=== PATIENT | male | born 1940 | race Caucasian/White ===

== ENCOUNTER → 2017-02-20 | Outpatient (CLI) | payer OTHER ==
[~2017-02-20] MED LIST: GLYBURIDE5 MG PO; KEFLEX500 MG PO; LISINOPRIL5 MG PO; METFORMIN500 MG PO; QUINAPRIL5 MG PO; TYLENOL W/CODEI1 TA2 PO
[2017-02-20 08:42] LABS: HEMATOCRIT 44.4 % (42.0-52.0); HEMOGLOBIN 14.6 g/dl (14.0-18.0); MEAN CELL VOLUME 88.8 fl (80.0-94.0); MEAN CORPUSCULAR HGB 29.2 pg (27.0-31.0); MEAN CORPUSCULAR HGB CONC 32.9 g/dl (33.0-37.0); MEAN PLATELET VOLUME 9.7 fl (9.6-12.3); RED CELL DISTRI WIDTH 13.8 % (0-14.5); WHITE BLOOD COUNT 6.2 10*3/uL (4.8-10.8)
[2017-02-20 09:03] LABS: ALKALINE PHOSPHATASE 89 U/L (45-117); BUN 20 mg/dl (7-24); CHLORIDE 104 mmol/L (98-107); CHOLESTEROL 186 mg/dL (<200); CPK 92 U/L (39-308); CREATININE 1.01 mg/dL (0.70-1.30); POTASSIUM 4.3 mmol/L (3.5-5.1); SODIUM 140 mmol/L (136-145); TRIGLYCERIDES 95 mg/dl (<150); VLDL CHOLESTEROL 19 mg/dL (6-40)
[2017-02-20 09:05] LABS: HDL CHOLESTEROL 68 mg/dl (40-60); LDL CHOLESTEROL 99 mg/dL (9-159); SGOT/AST 16 IU/L (3-35); SGPT/ALT 30 U/L (12-78); TOTAL PROTEIN 6.9 gm/dL (6.4-8.2)
[2017-02-21 08:11] LABS: PROSTATE SPECIFIC AG FREE 1.32 ng/mL; PROSTATE SPECIFIC AG, SERUM 5.8 ng/mL (0.0-4.0)
== END | disposition home or self-care (01) ==
LOC: LAB 07:57
PROVIDERS: Family Medicine
DX: E78.00 Pure hypercholesterolemia, unspecified (principal); R97.20 Elevated prostate specific antigen [PSA]; E11.9 Type 2 diabetes mellitus without complications; M19.90 Unspecified osteoarthritis, unspecified site

== ENCOUNTER → 2017-05-29 | Outpatient (CLI) | payer OTHER ==
[2017-05-29 10:18] LABS: ALBUMIN 3.3 gm/dl (3.1-4.5); ALKALINE PHOSPHATASE 77 U/L (45-117); BUN 19 mg/dl (7-24); CHLORIDE 101 mmol/L (98-107); CHOLESTEROL 199 mg/dL (<200); CPK 66 U/L (39-308); CREATININE 1.13 mg/dL (0.70-1.30); HDL CHOLESTEROL 68 mg/dl (40-60); LDL CHOLESTEROL 97 mg/dL (9-159); POTASSIUM 4.1 mmol/L (3.5-5.1); SGOT/AST 16 IU/L (3-35); SGPT/ALT 30 U/L (12-78); SODIUM 138 mmol/L (136-145); TOTAL PROTEIN 6.9 gm/dL (6.4-8.2); TRIGLYCERIDES 172 mg/dl (<150); VLDL CHOLESTEROL 34 mg/dL (6-40)
== END | disposition home or self-care (01) ==
LOC: LAB 09:27
PROVIDERS: Family Medicine
DX: R97.20 Elevated prostate specific antigen [PSA] (principal); N40.0 Benign prostatic hyperplasia without lower urinary tract symptoms; I10 Essential (primary) hypertension; E11.9 Type 2 diabetes mellitus without complications; E78.00 Pure hypercholesterolemia, unspecified

== ENCOUNTER → 2017-06-13 | Outpatient (CLI) | payer OTHER | END | disposition home or self-care (01) | LOC: US 06-12 13:30 | DX: R09.89 Other specified symptoms and signs involving the circulatory and respiratory systems (principal) ==

== ENCOUNTER → 2017-07-01 | Outpatient (CLI) | payer OTHER ==
[~2017-07-01] MED LIST changes: +JARDIANCE25 MG PO; +METFORMIN1000 MG PO; +OMEPRAZOLE20 M2 PO
--- NOTE | ~2017-07-01 | ST ---
[place], [place] EXERCISE STRESS TEST REPORT [id number] UN[facility] #: [id number] ROOM: DOCTOR: FUNMILAYO PINEDA MD BIRTHDATE: [birth year] DOS: 07/01/2017 LEXISCAN PORTION OF THE LEXISCAN CARDIOLITE Baseline cardiogram showed early repolarization with concave ST elevation diffusely and also PACs in sinus bradycardia, 0.4 mg Lexiscan, duration of 10 seconds. With Lexiscan, no new EKG changes. No more PVCs. No chest discomfort. Has some shortness of breath. Blood pressure and heart rate response was normal. Nuclear images will be reported separately. FUNMILAYO PINEDA MD CM:STRESS:EXERCISE STRESS TEST REPORT [id number] FUNMILAYO PINEDA MD
== END | disposition home or self-care (01) ==
LOC: CARD 01:34
DX: E11.9 Type 2 diabetes mellitus without complications (principal); R94.31 Abnormal electrocardiogram [ECG] [EKG]; R53.81 Other malaise; R06.02 Shortness of breath

== ENCOUNTER → 2017-08-14 | Outpatient (CLI) | payer OTHER ==
[2017-08-14 10:15] LABS: ALBUMIN 3.2 gm/dl (3.1-4.5); ALKALINE PHOSPHATASE 90 U/L (45-117); BUN 16 mg/dl (7-24); CHLORIDE 99 mmol/L (98-107); CHOLESTEROL 177 mg/dL (<200); CPK 93 U/L (39-308); HDL CHOLESTEROL 52 mg/dl (40-60); LDL CHOLESTEROL 88 mg/dL (9-159); POTASSIUM 4.7 mmol/L (3.5-5.1); SGOT/AST 15 IU/L (3-35); SGPT/ALT 24 U/L (12-78); SODIUM 137 mmol/L (136-145); TOTAL PROTEIN 6.9 gm/dL (6.4-8.2); TRIGLYCERIDES 185 mg/dl (<150); VLDL CHOLESTEROL 37 mg/dL (6-40)
== END | disposition home or self-care (01) ==
LOC: LAB 08:56
PROVIDERS: Family Medicine
DX: E78.00 Pure hypercholesterolemia, unspecified (principal); E11.9 Type 2 diabetes mellitus without complications

== ENCOUNTER → 2017-11-19 | Outpatient (CLI) | payer OTHER ==
[2017-11-19 10:11] LABS: HEMATOCRIT 45.8 % (42.0-52.0); HEMOGLOBIN 14.8 g/dl (14.0-18.0); MEAN CELL VOLUME 88.9 fl (80.0-94.0); MEAN CORPUSCULAR HGB 28.7 pg (27.0-31.0); MEAN CORPUSCULAR HGB CONC 32.3 g/dl (33.0-37.0); MEAN PLATELET VOLUME 9.7 fl (9.6-12.3); RED BLOOD COUNT 5.15 10*6/uL (4.50-5.90); RED CELL DISTRI WIDTH 13.8 % (0-14.5); WHITE BLOOD COUNT 6.4 10*3/uL (4.8-10.8)
[2017-11-19 10:32] LABS: ALBUMIN 3.4 gm/dl (3.1-4.5); ALKALINE PHOSPHATASE 74 U/L (45-117); BUN 19 mg/dl (7-24); CHLORIDE 103 mmol/L (98-107); CHOLESTEROL 181 mg/dL (<200); CPK 102 U/L (39-308); CREATININE 1.05 mg/dL (0.70-1.30); HDL CHOLESTEROL 67 mg/dl (40-60); LDL CHOLESTEROL 91 mg/dL (9-159); POTASSIUM 4.1 mmol/L (3.5-5.1); SGOT/AST 10 IU/L (3-35); SGPT/ALT 26 U/L (12-78); SODIUM 139 mmol/L (136-145); TOTAL PROTEIN 6.9 gm/dL (6.4-8.2); TRIGLYCERIDES 114 mg/dl (<150); VLDL CHOLESTEROL 23 mg/dL (6-40)
== END | disposition home or self-care (01) ==
LOC: LAB 09:42
PROVIDERS: Family Medicine
DX: E11.9 Type 2 diabetes mellitus without complications (principal); E78.00 Pure hypercholesterolemia, unspecified; I10 Essential (primary) hypertension

== ENCOUNTER → 2018-03-18 | Outpatient (CLI) | payer OTHER | END | disposition home or self-care (01) | LOC: RAD 07:46 | DX: M25.512 Pain in left shoulder (principal) ==

== ENCOUNTER → 2018-05-11 | Outpatient (CLI) | payer OTHER ==
[~2018-05-11] MED LIST changes: +AMARYL2 MG PO; +ASPIRIN325 M2 PO; +ENOXAPARIN40 MG/0.2 SC; +HYDROCODONE-AC1 EAC1 PO; +MAG DELAY PO
== END | disposition home or self-care (01) ==
DX: J02.9 Acute pharyngitis, unspecified (principal); E11.9 Type 2 diabetes mellitus without complications

== ENCOUNTER → 2018-06-18 | Outpatient (CLI) | payer OTHER ==
[2018-06-18 10:01] LABS: HEMATOCRIT 43.3 % (42.0-52.0); HEMOGLOBIN 14.2 g/dl (14.0-18.0); MEAN CELL VOLUME 89.1 fl (80.0-94.0); MEAN CORPUSCULAR HGB 29.2 pg (27.0-31.0); MEAN CORPUSCULAR HGB CONC 32.8 g/dl (33.0-37.0); MEAN PLATELET VOLUME 9.7 fl (9.6-12.3); RED BLOOD COUNT 4.86 10*6/uL (4.50-5.90); RED CELL DISTRI WIDTH 14.1 % (0-14.5); WHITE BLOOD COUNT 6.5 10*3/uL (4.8-10.8)
[2018-06-18 10:33] LABS: ALBUMIN 3.1 gm/dl (3.1-4.5); ALKALINE PHOSPHATASE 82 U/L (45-117); BUN 15 mg/dl (7-24); CHLORIDE 103 mmol/L (98-107); CHOLESTEROL 186 mg/dL (<200); CPK 59 U/L (39-308); CREATININE 0.99 mg/dL (0.70-1.30); HDL CHOLESTEROL 56 mg/dl (40-60); LDL CHOLESTEROL 95 mg/dL (9-159); POTASSIUM 4.3 mmol/L (3.5-5.1); SGOT/AST 15 IU/L (3-35); SGPT/ALT 23 U/L (12-78); SODIUM 139 mmol/L (136-145); TOTAL PROTEIN 6.8 gm/dL (6.4-8.2); TRIGLYCERIDES 175 mg/dl (<150); VLDL CHOLESTEROL 35 mg/dL (6-40)
== END | disposition home or self-care (01) ==
LOC: LAB 09:23
PROVIDERS: Family Medicine
DX: E11.9 Type 2 diabetes mellitus without complications (principal); E78.00 Pure hypercholesterolemia, unspecified

== ENCOUNTER → 2018-08-11 | Outpatient (CLI) | payer OTHER ==
[2018-08-12 08:14] LABS: PROSTATE SPECIFIC AG FREE 1.46 ng/mL; PROSTATE SPECIFIC AG, SERUM 5.1 ng/mL (0.0-4.0)
== END | disposition home or self-care (01) ==
LOC: LAB 09:34
PROVIDERS: Urology
DX: R97.20 Elevated prostate specific antigen [PSA] (principal)

== ENCOUNTER → 2018-09-18 | Outpatient (CLI) | payer OTHER ==
[2018-09-18 09:32] LABS: ALBUMIN 3.2 gm/dl (3.1-4.5); ALKALINE PHOSPHATASE 104 U/L (45-117); BUN 16 mg/dl (7-24); CHLORIDE 104 mmol/L (98-107); CHOLESTEROL 179 mg/dL (<200); CPK 109 U/L (39-308); CREATININE 1.02 mg/dL (0.70-1.30); HDL CHOLESTEROL 63 mg/dl (40-60); LDL CHOLESTEROL 92 mg/dL (9-159); SGOT/AST 19 IU/L (3-35); SGPT/ALT 20 U/L (12-78); SODIUM 140 mmol/L (136-145); TOTAL PROTEIN 6.7 gm/dL (6.4-8.2); TRIGLYCERIDES 119 mg/dl (<150); VLDL CHOLESTEROL 24 mg/dL (6-40)
[2018-09-18 09:33] LABS: POTASSIUM 5.1 mmol/L (3.5-5.1)
== END | disposition home or self-care (01) ==
LOC: LAB 08:58
PROVIDERS: Family Medicine
DX: E78.00 Pure hypercholesterolemia, unspecified (principal); E11.9 Type 2 diabetes mellitus without complications; E55.9 Vitamin D deficiency, unspecified; S82.892A Other fracture of left lower leg, initial encounter for closed fracture; X58.XXXA Exposure to other specified factors, initial encounter; Y93.89 Activity, other specified; Y92.89 Other specified places as the place of occurrence of the external cause; Y99.8 Other external cause status

== ENCOUNTER 2018-11-18 12:30 | Inpatient (IN) | payer OTHER ==
[~2018-11-18] VITALS: Ht 175.2 cm; Wt 73.8 kg
--- NOTE | ~2018-11-18 | EKG ---
[place], [place] ELECTROCARDIOGRAM REPORT NAME: GABY SOLANO UNIT #: [id number] ROOM: 522 DOCTOR: KAMARI DRAFT REPORT BIRTHDATE: [birth year] [facility] Test Date: 2018-11-18 Test Time: 15:20:17 Pat Name: GABY SOLANO Department: Room: 522 Gender: M Demolition Worker: Ketty Buck : 1940 Requested By: TIARA SALTER Order Number: [id number] Reading MD: Wendy Garay Measurements Intervals [place] Rate: 48 P: 57 RI: 227 QRS: 42 QRSD: 98 T: 53 QT: 436 QTc: 390 Interpretive Statements Sinus bradycardia Atrial premature complex Borderline prolonged RI interval Probable left ventricular hypertrophy ST elevation, consider anterolateral injury No previous ECG available for comparison Electronically Signed On 11-19-2018 8:38:27 PDT by Wendy Garay CM:EKGRPT:ELECTROCARDIOGRAM REPORT [id number] TIARA BENITES DRAFT REPORT TIARA SALTER M.D.
--- NOTE | ~2018-11-18 | O ---
[place], [place] OPERATIVE NOTE NAME: GABY SOLANO [facility] #: [id number] UNIT #: [id number] ROOM: 522 DOCTOR: AMARA TEMPLE DO BIRTHDATE: [birth year] DOS: 11/19/2018 PREOPERATIVE DIAGNOSIS: Right femoral neck fracture, displaced. POSTOPERATIVE DIAGNOSIS: Right femoral neck fracture, displaced. OPERATIVE PROCEDURE: Right hip femoral hemiarthroplasty. SURGEON: Amara Temple DO. INTERNSHIP COORDINATOR: Shira Reagan. ANESTHESIA: Mariola, TUBE CLEANING OPERATOR; spinal. INDICATIONS: The patient is a 78-year-old male who reports that yesterday he was standing on a bucket in his barn, reaching up to the rafters when he fell and suffered an injury to his right hip. The patient was taken to the Emergency Room and x-rays indicated a displaced right femoral neck fracture confirmed by CT scan. The risks and benefits of the procedure were explained to the patient preoperatively. Preoperative labs and x-rays were obtained. Preoperative medical optimization was performed by the hospitalist. PROCEDURE: The left hip was marked in the holding room. The patient was brought to the operative suite. Spinal anesthetic was performed by Anesthesia. The patient was placed in a lateral decubitus position with the right lower extremity superior and was held by the Blade positioning device. All bony prominences were padded. Timeout was performed. The right lower extremity was prepped and draped in the usual orthopedic fashion. The posterior southern incision was marked with a marking pen. The skin was injected with Marcaine 0.5% with epinephrine. The posterior southern incision was made sharply with a scalpel. Subcutaneous tissue was spread down to the level of the gluteus mary. The fascia of the gluteus mary was divided along the fibers and the muscle was divided bluntly along its fibers. The extremity was externally rotated and the piriformis and short external rotators were identified. The piriformis was tagged with a suture. The short external rotators were released from the level of their insertion at the greater trochanter and retracted posteriorly over the sciatic nerve. The capsule was identified and divided. The neck was noted to have a low fracture and no additional calcar cut was made. A rongeur was used to smooth off any sharp bony edges. The femoral head was removed using a straight Steinmann pin and a skid. The entry point on the proximal femur was lateralized using a box osteotome followed by straight awl and a lateral rasp. The small chili pepper broach was utilized followed by a size 8 broach and this was progressed to a size 14 to provide the best fit and fill of the canal. Attention was paid to the anteversion that naturally occurred in the proximal femur. The trial 1.5 mm head with a 51 followed by a 50 mm outer diameter bipolar was utilized. The size 1.5 head with a 50 outer diameter bipolar was noted to have the best range of motion in flexion, extension, internal and external rotation and no excessive shucking was noted. The leg length was measured against the opposite extremity [place], [place] OPERATIVE NOTE NAME: GABY SOLANO UNIT #: [id number] ROOM: [facility] DOCTOR: AMARA TEMPLE DO BIRTHDATE: [birth year] and found to be acceptable. The trials were removed and the area was copiously irrigated with normal saline. The Corail cementless femoral stem was pressfit into place. This was a size 14. The Articul/osei femoral head with a bipolar head was placed over the trunnion and cold welded into place. This was evaluated and found to be snug. The hip was then reduced with the femoral head into the acetabulum. The right lower extremity was again taken through a range of motion with flexion past 90 degrees, internal and external rotation at 90 degrees was noted to be 45 without evidence of instability. Extension was evaluated and found to be adequate. The leg was placed on a well-padded Vasquez stand and the repair was initiated. 0 Vicryl was used to close the capsule of the hip followed by 0 Vicryl for the piriformis and the short external rotators followed by 0 Vicryl for the gluteus fascia and 2-0 Vicryl for the adipose layer. The closure was completed with skin candi. The incision was again injected with Marcaine 0.5% with epinephrine. The dressing was applied using Xeroform, 4 x 4s, ABDs, Tegaderm. The abduction pillow was put into place. The patient was returned to supine position and returned to the hospital bed and taken to recovery room in satisfactory condition. Sponge and needle count correct. ESTIMATED BLOOD LOSS: 200 mL. SPECIMENS: Femoral head and neck, right. DRAINS: None. PACKING: None. COMPLICATIONS: None. The patient is noted to receive Ancef 2 grams IV piggyback preoperatively. Local injection of Marcaine 0.5% with epinephrine was utilized. IMPLANTS: 1. DePuy Corail hip system, cementless femoral stem CUELLAR coated, 135-degree angle, no collar, size 14. 2. Self-centering bipolar head, 50 mm outer diameter. 3. Articul/osei femoral head 28 mm x 1.5 mm taper. [place], [place] OPERATIVE NOTE NAME: XIOMARAGABY Terrell UNIT #: [id number] ROOM: 522 DOCTOR: AMARA TEMPLE DO BIRTHDATE: [birth year] AMARA TEMPLE DO CM:OPRECORD:OPERATIVE NOTE [id number] AMARA TEMPLE DO 11/19/18 1644 interface
--- NOTE | ~2018-11-18 | CON ---
[place], [place] REPORT OF CONSULTATION NAME: GABY SOLANO UNIT #: [id number] ROOM: 522 DOCTOR: ALEKSANDRA STAPLES MD BIRTHDATE: [birth year] DOS: 11/19/2018 CARDIOLOGY CONSULTATION REASON FOR CONSULTATION: Cardiac clearance for surgery. HISTORY OF PRESENT ILLNESS: The patient is a 78-year-old gentleman with history of hypertension, bradycardia, diabetes, presented to the Emergency Room for right hip pain after a fall. He was noted to have a fracture of the right hip and was admitted to the hospital. Cardiology consulted for cardiac clearance and also for bradycardia. He denies any chest pain, shortness of breath. No dizziness, syncope. No fever and chills. No nausea, vomiting, diarrhea. He is fairly active at home without any symptoms. He has sinus bradycardia without any symptoms. No neurologic symptoms. No bladder or bowel symptoms. No pulmonary symptoms. No genitourinary symptoms. Only complaint is right hip pain from his fall, but the patient did not pass out. REVIEW OF SYSTEMS: Review of 10 systems negative except as mentioned above. PAST MEDICAL HISTORY: 1. Hypertension. 2. Sinus bradycardia. 3. Diabetes type 2. PAST SURGICAL HISTORY: History of shoulder surgery. SOCIAL HISTORY: The patient does not smoke, does not use illicit drugs, does not drink alcohol on regular basis. FAMILY HISTORY: Father at age 80 from blood clot in the veins. Mother at 97 from old age. ALLERGIES: No known drug allergies. HOME MEDICATIONS: Reviewed. PHYSICAL EXAMINATION: VITAL SIGNS: Blood pressure 143/75, pulse 48, respiratory rate was 18, weight 73.7 kilos. GENERAL: Alert, comfortable, in no acute distress. HEENT: Pupils are round and equal. No jaundice. NECK: Supple, no distended neck veins, no carotid bruit. CHEST: Symmetrical, nontender. LUNGS: Clear to auscultation bilaterally. HEART: Regular rhythm, no S3, no palpable thrills. ABDOMEN: Benign, nontender. Bowel sounds normal. EXTREMITIES: Showed no edema. Right leg was shortened and externally rotated. SKIN: Warm and dry. No cyanosis, no clubbing. RECTAL: Deferred. GENITOURINARY: Deferred. [place], [place] REPORT OF CONSULTATION NAME: GABY SOLANO UNIT #: [id number] ROOM: 522 DOCTOR: JHOAN GRECO,ALEKSANDRA BIRTHDATE: [birth year] NEUROLOGIC: The patient is alert with no focal neurologic deficit. PSYCHIATRIC: The patient is alert with good mood and affect. REVIEW OF THE DIAGNOSTIC TESTS: EKG and labs reviewed. Stress test from June 2017 reviewed. IMPRESSION: 1. Right hip fracture due to fall, no syncope. 2. Sinus bradycardia, asymptomatic. Normal TSH levels. 3. Hypertension. 4. Diabetes type 2. RECOMMENDATIONS: 1. The patient is stable from a cardiac standpoint. He denies any chest pain. He has very good functional capacity at home prior to his fall and he had nonischemic stress test in June 2017 and normal LV function. 2. He will be cleared for his hip surgery from the cardiac standpoint, low cardiac risk. 3. His sinus bradycardia was discussed with him and his and no further treatment recommended at this time. 4. In the future, if the patient does have symptomatic bradycardia with heart rate less than 40 during the daytime, he will need permanent pacemaker. Cardiology will sign off and the patient will follow up with [facility] in about one month. Above recommendation discussed with the patient and his family and all questions were answered. ALEKSANDRA STAPLES MD CM:CONSTR:REPORT OF CONSULTATION 1253 11/20/18 0002 interface
[~2018-11-18 12:30] MED LIST changes: -AMARYL2 MG PO; -ASPIRIN325 M2 PO; -ENOXAPARIN40 MG/0.2 SC; -HYDROCODONE-AC1 EAC1 PO; -MAG DELAY PO
[2018-11-18 12:32] VITALS: BP 87/51
--- NOTE | 2018-11-18 12:35 | NUR ---
ARRIVED VIA EMS FROM HOME WHERE HE WAS FOUND BY HIS LAYING IN THE YARD IN THE RAIN. CRAWLED FROM BARN TO LAWN TRACTOR BUT WAS UNABLE TO GET HIMSELF UP AFTER FALLING OFF A 5 GALLON BUCKET. WAS STANDING ON BUCKET TO REACH SOMETHING IN THE BARN WHEN THE BUCKET KICKED OUT AND HE FELL. DENIES HITTING HIS HEAD, LOC, OR BLOOD THINNERS. REPORTS PAIN IN RIGHT LOWER BACK AND RIGHT HIP . UNABLE TO PERFORM AROM ON EXTREMITY AND CANNOT LIFT IT AT ALL. REPSOITIONED FOR COMFORT. MOVEMENT INDUCED NAUSEA NA DR SALTER IS AWARE. UPDATED ON PLAN OF CARE. CALL LIGHT WITHIN REACH ADN SIDE RAILS X 2 FOR REPOSITIONING. RLE ELEVATED ON PILLOW AND IS MORE COMFORTABLE.
[2018-11-18 12:46] VITALS: BP 109/56
--- NOTE | 2018-11-18 13:13 | NUR ---
BILATERAL HEARING AIDS IN PLACE.
--- NOTE | 2018-11-18 13:49 | NUR ---
INCREASED PAIN SINCE BEING MOVED AROUND FOR IMAGING. REPOSITIONED FOR COMFORT. OFFERED TO REQUEST PAIN MEDICATION BUT HE DECLINED STATING HE WANTS TO SEE IF IT WILL SETTLE DOWN A BIT AGAIN NOW THAT HIS LEG HAS BEEN ADJUSTED. UPDATED AND REINFORCED NEED TO REMAIN NPO. AND HIS RETAIL SALES ADVISOR ARE AT THE BEDSIDE. CALL LIGHT WITHIN REACH. WILL MONITOR.
[2018-11-18 15:13] VITALS: BP 112/61
--- NOTE | 2018-11-18 15:23 | NUR ---
UPDATED ON PLAN FOR ADMISSION AND MEDICATED FOR PAIN PER ORDERS. PAIN IS BEGINNING TO IMPROVE. REMAINS AT THE BEDSIDE. CALL LIGHT WITHIN REACH. WILL MONITOR.
--- NOTE | 2018-11-18 15:29 | NUR ---
RADIOLOGY IS AT THE BEDSIDE FOR PORTABLE CXR. AWAITING LAB SPECIMENS.
[2018-11-18 15:35] LABS: BASO % 0.2 % (0.0-1.0); HEMATOCRIT 38.3 % (42.0-52.0); HEMOGLOBIN 12.5 g/dl (14.0-18.0); LYMPH # 0.9 10*3/uL (1.3-4.4); LYMPH % 5.8 % (27.0-41.0); MEAN CELL VOLUME 90.1 fl (80.0-94.0); MEAN CORPUSCULAR HGB 29.4 pg (27.0-31.0); MEAN CORPUSCULAR HGB CONC 32.6 g/dl (33.0-37.0); MEAN PLATELET VOLUME 10.1 fl (9.6-12.3); MONO # 0.8 10*3/uL (0.1-1.0); NEUT # 14.3 10*3/uL (2.3-7.9); PLATELET COUNT AUTOMATED 297 10*3/uL (130-400); RED BLOOD COUNT 4.25 10*6/uL (4.50-5.90); RED CELL DISTRI WIDTH 14.3 % (0-14.5); WHITE BLOOD COUNT 16.3 10*3/uL (4.8-10.8)
--- NOTE | 2018-11-18 15:38 | NUR ---
DID NOT TOLERATE REPOSITIONING FOR X-RAY. HAD EMESIS AND PAIN INCREASED BUT IS BEGINNING TO IMPROVE SLIGHTLY.
--- NOTE | 2018-11-18 15:41 | NUR ---
SPOKE WITH VAISHALI FOR ROOM 522 TO ADVISE PATIENT ETA 5 MINS. FAMILY AWARE OF ROOM ASSIGNMENT. TOOK WET SHIRT, SOCKS, CONTENTS OF PANTS POCKETS, AND PANTS, AND SHOES THAT WERE ON PATIENT ON ARRIVAL
[2018-11-18 15:49] LABS: ALBUMIN 3.3 gm/dl (3.1-4.5); ALKALINE PHOSPHATASE 79 U/L (45-117); BUN 19 mg/dl (7-24); CHLORIDE 106 mmol/L (98-107); CREATININE 1.09 mg/dL (0.70-1.30); POTASSIUM 4.4 mmol/L (3.5-5.1); SGOT/AST 18 IU/L (3-35); SGPT/ALT 27 U/L (12-78); SODIUM 141 mmol/L (136-145); TOTAL PROTEIN 6.6 gm/dL (6.4-8.2)
[2018-11-18 15:50] VITALS: BP 116/59
--- NOTE | 2018-11-18 15:50 | NUR ---
A 78 YEAR OLD MALE PATIENT, admitted to [facility], under the services of BEATRIZ Colvin DO with a diagnosis of FRACTURE OF RIGHT HIP. Chief complaint is FALL FROM BUCKET ONTO HIP, PAIN. Patient arrived via CART WITH RN from ER. Initial assessment completed. Vital signs taken and recorded. See assessment for past medical history, medications and allergies. Patient and/or family oriented to unit. [address] ROOM 522 visitation policy reviewed. Clothing/patient valuable form completed. RISHABH BLACKMON
--- NOTE | 2018-11-18 16:06 | NUR ---
OFFICE STAFF WAS NOTIFIED OF DR. STAPLES CONSULT. RESPONSE OF NOTIFICATION WAS OK I WILL GIVE IT TO HIM. . SHLOMO FOX
[2018-11-18 16:22] VITALS: BP 116/59
--- NOTE | 2018-11-18 16:40 | NUR ---
ANSWERING SERVICE WAS NOTIFIED OF DR. MUSTAFA CONSULT. RESPONSE OF NOTIFICATION WAS OK SHE WILL GET IT TOMORROW BECAUSE THERE IS NO COVERAGE TONIGHT.. SHLOMO FOX
--- NOTE | 2018-11-18 16:43 | NUR ---
DR EISENBERG STATED THAT DR MUSTAFA IS AWARE OF CONSULT
--- NOTE | 2018-11-18 18:15 | NUR ---
AFTER INSERTING ALICEA PT NOW REPORTS HE FELT WET. UPON CHECKING PT URINE WAS LEAKING OUT AROUND ALICEA CATH. CATH REPOSITIONED AND IT CONTINUED TO LEAK. I WENT TO REPLACE THE 18FR ALICEA WITH A 22FR AND WHEN I TOOK THE 18FR OUT THERE WAS BLOOD IN THE CATH. DR EISENBERG NOTIFIED AND STATED TO LEAVE ALICEA OUT AND BLADDER SCAN QSHIFT. PT DECLINES ANY DISCOMFORT AT THIS TIME.
[2018-11-18 20:00] VITALS: BP 125/61
[2018-11-19] VITALS (10 sets, daily range): BP systolic 102–143; BP diastolic 48–75
--- NOTE | 2018-11-19 03:51 | NUR ---
PATIENT MEDICATED WITH PRN MORPHINE ORDERED FOR C/O RIGHT HIP PAIN RATED 6/10
--- NOTE | 2018-11-19 04:00 | NUR ---
PATIENT USED BED SIDE URINAL. BLADDER SCANNED FOR PVR OF 15 ML.
[2018-11-19 06:34] LABS: BASO % 0.1 % (0.0-1.0); EOS % 0.1 % (1.0-4.0); HEMOGLOBIN 12.2 g/dl (14.0-18.0); LYMPH # 1.6 10*3/uL (1.3-4.4); LYMPH % 13.8 % (27.0-41.0); MEAN CELL VOLUME 89.6 fl (80.0-94.0); MEAN CORPUSCULAR HGB 28.8 pg (27.0-31.0); MEAN CORPUSCULAR HGB CONC 32.1 g/dl (33.0-37.0); MEAN PLATELET VOLUME 10.3 fl (9.6-12.3); MONO # 0.7 10*3/uL (0.1-1.0); MONO % 6.4 % (3.0-9.0); NEUT # 9.1 10*3/uL (2.3-7.9); NEUT % 78.2 % (47.0-73.0); PLATELET COUNT AUTOMATED 287 10*3/uL (130-400); RED BLOOD COUNT 4.24 10*6/uL (4.50-5.90); RED CELL DISTRI WIDTH 14.4 % (0-14.5); WHITE BLOOD COUNT 11.7 10*3/uL (4.8-10.8)
[2018-11-19 07:05] LABS: BUN 19 mg/dl (7-24); CHLORIDE 105 mmol/L (98-107); CHOLESTEROL 168 mg/dL (<200); CREATININE 1.01 mg/dL (0.70-1.30); PHOSPHOROUS 3.5 mg/dL (2.5-4.9); POTASSIUM 3.8 mmol/L (3.5-5.1); SGOT/AST 15 IU/L (3-35); SGPT/ALT 25 U/L (12-78); SODIUM 141 mmol/L (136-145); TOTAL PROTEIN 6.4 gm/dL (6.4-8.2); TRIGLYCERIDES 57 mg/dl (<150); VLDL CHOLESTEROL 11 mg/dL (6-40)
[2018-11-19 07:07] LABS: ALKALINE PHOSPHATASE 76 U/L (45-117); HDL CHOLESTEROL 70 mg/dl (40-60); LDL CHOLESTEROL 87 mg/dL (9-159)
[2018-11-19 07:40] LABS: VITAMIN D, 25-HYDROXY 24.8 ng/mL (30-100)
--- NOTE | 2018-11-19 08:27 | NUR ---
PHYSICAL THERAPY Nursing screen received and chart reviewed. Please order physical therapy evaluation when medically appropriate following orthopedic consult. Thank you. Milvia Webb,PT,DPT.
--- NOTE | 2018-11-19 08:31 | NUR ---
PATIENT C/O 12/12 RIGHT KNEE PAIN; MEDICATED WITH IV MORPHINE AT THIS TIME PER ORDER. WILL MONITOR FOR EFFEECTIVENESS.
--- NOTE | 2018-11-19 09:00 | NUR ---
PER PATIENT, PRN MED EFFECTIVE.
--- NOTE | 2018-11-19 09:34 | NUR ---
PT TAKEN TO SURGERY AT THIS TIME.
[2018-11-19] MEDS ORDERED: MAG DELAY PO (09:48)
--- NOTE | 2018-11-19 11:29 | NUR ---
Vertical Lathe Operator in to talk to patient. Patient states lives at HOME with . There are 4 steps in the home. Physician: MANISHA Pharmacy: [facility] Home health services: NONE Patient's level of ADLs: INDEPENDENT Patient has working utilities: YES DME: NONE Follow-up physician's appointment after d/c: WILL BE MADE BY HOSPITALIST NURSE DIRECTOR ON DISCHARGE Does patient want to access PORTAL?: NO Discharge plan PT LIVES AT HOME WITH AND IS INDEPENDENT IN HIS CARE. STATES HE IS ACTIVE UNTIL FALL. PT GIVEN LIST OF FACILITIES FOR REHAB AND CHOSE [facility] HIS FIRST CHOICE. SW NFORMED AND WILL MAKE REFERRAL. WILL CONTINUE TO FOLLOW PT. PT IS FOR OR TODAY. . CARLEE LY
--- NOTE | 2018-11-19 13:57 | NUR ---
Nursing screen received and Occupational Therapy referral received. Thank you. Parul Kirkpatrick OTR/l
--- NOTE | 2018-11-19 14:30 | NUR ---
PATIENT DENIES NEEDS AT THIS TIME. NERVE BLOCK STILL IN EFFECTI; PT DENIES ANY PAIN. ABLE TO SLIGHTLY MOVE TOES AT THIS TIME. PPP. DRESSING DRY/INTACT. ICE PACK APPLIED TO RT HIP. TRAPEZE BAR IN PLACE. PRESENT AT BEDSIDE. CALL LIGHT WITHIN REACH
--- NOTE | 2018-11-19 15:22 | NUR ---
PHYSICAL THERAPY Physical therapy order received with request to start today, per Dr. Temple. Patient supine in bed with at side. Patient reports he is still unable to feel Right LE, but demonstrated ability to move right ankle. Total hip precautions discussed with patient/. Plan to perform PT evaluation tomorrow. Thank you. Milvia Webb,PT,DPT.
--- NOTE | 2018-11-19 15:39 | NUR ---
Occupational Therapy referral received and to start today per Dr. Temple order. Patient in bed with at bedside. He reports that he is still unable to feel RLE since surgery. OTR educated patient on hip precautions and reason for abductor wedge. OTR to evaluate tomorrow. Parul Kirkpatrick OTR/Terrell
--- NOTE | 2018-11-19 15:53 | NUR ---
PATIENT INSTRUCTED ON USE OF INCENTIVE SPIROMETRY.
--- NOTE | 2018-11-19 20:47 | NUR ---
PATIENT IS RESTING IN BED WITH EASY AND REGULAR RESPERS ON ROOM AIR. ASSESSMENT IS COMPLETE WITH NO S/S OF DISTRESS OR C/O NOTED AT THIS TIME. TRAPEZE, TEDS, SCDS, AND ABDUCTOR PILLOW IN PLACE. BS 408 VIA FINGER STICK. BED IS LOW, LOCKED, ALARMED, AND CALL LIGHT IS WITHIN REACH. WILL CONTINUE TO MONITOR.
--- NOTE | 2018-11-19 23:40 | NUR ---
ASSUME CARE OF PATIENT. RESTING COMFORTABLY IN BED AT THIS TIME. ABDUCTOR PILLOW IN PLACE. ICE PACK ON HIP. PATIENT STATES HE HAS NO PAIN AT THIS TIME. PLEASANT/COOPERATIVE WITH CARE. CALL LIGHT IN REACH
[2018-11-20] VITALS: BP 98/45
[2018-11-20 04:00] VITALS: BP 94/60
--- NOTE | 2018-11-20 04:12 | NUR ---
PATIENT C/O RIGHT HIP PAIN RATED 6/10. REQUESTING MORPHINE. MANUAL BP 94/60. NOTIFIED DR OLSON AND STATED TO HOLD OFF ON THE MORPHINE AND GUIVE THE NORCO RIGHT NOW.
[2018-11-20 06:43] LABS: BASO % 0.1 % (0.0-1.0); LYMPH # 1.7 10*3/uL (1.3-4.4); LYMPH % 14.3 % (27.0-41.0); MEAN CELL VOLUME 90.5 fl (80.0-94.0); MEAN CORPUSCULAR HGB 29.7 pg (27.0-31.0); MEAN CORPUSCULAR HGB CONC 32.8 g/dl (33.0-37.0); MEAN PLATELET VOLUME 10.6 fl (9.6-12.3); MONO % 8.5 % (3.0-9.0); NEUT # 9.2 10*3/uL (2.3-7.9); NEUT % 76.2 % (47.0-73.0); PLATELET COUNT AUTOMATED 207 10*3/uL (130-400); RED BLOOD COUNT 3.27 10*6/uL (4.50-5.90); RED CELL DISTRI WIDTH 14.6 % (0-14.5)
[2018-11-20 06:49] LABS: HEMATOCRIT 29.6 % (42.0-52.0); HEMOGLOBIN 9.7 g/dl (14.0-18.0)
[2018-11-20 07:15] LABS: CHLORIDE 111 mmol/L (98-107); POTASSIUM 4.4 mmol/L (3.5-5.1); SODIUM 143 mmol/L (136-145)
[2018-11-20 07:24] LABS: BUN 19 mg/dl (7-24); CREATININE 0.99 mg/dL (0.70-1.30)
[2018-11-20 08:00] VITALS: BP 104/58; BP 127/66
--- NOTE | 2018-11-20 08:13 | NUR ---
TELEVISION PICTURE TUBE REBUILDER made referral to [facility]. Will await PT/OT notes to send. -MUMTAZ Sellers
--- NOTE | 2018-11-20 08:17 | NUR ---
PATIENT REQUESTING PAIN MEDICATION FOR RIGHT HIP PAIN RATED 6/10 ON 0/10 SCALE. NORCO ADMINISTERED PRESCRIBED. WILL MONITOR FOR EFFECTIVENESS.
--- NOTE | 2018-11-20 08:36 | NUR ---
PHYSICAL THERAPY Attempted Physical therapy evaluation at this time. Patient requesting to wait for breakfast/eat prior to PT evaluation. Will try again. Thank you. Milvia Webb,PT,DPT.
--- NOTE | 2018-11-20 08:37 | NUR ---
Occupational therapy eval offered but patient pleasantly declined until after he had his breakfast. Will attempt at a later date. Noe Kirkpatrick OTR/L
--- NOTE | 2018-11-20 09:17 | NUR ---
PATIENT STATES THAT RIGHT HIP PAIN 3/10 AFTER ADMINISTRATION OF NORCO. WILL CONTINUE TO MONITOR.
--- NOTE | 2018-11-20 09:47 | NUR ---
PHYSICAL THERAPY Physical therapy evaluation complete. Full details to follow. Moderate complexity evaluation (61148) per chart review and evaluation. Patient to follow Total hip precautions for Right hip, and is WBAT. Recommend SNF at discharge for continued PT services. Thank you. Milvia Webb,PT,DPT.
--- NOTE | 2018-11-20 09:48 | NUR ---
Occupational therapy eval complete on 5 with full eval to follow. Precautions include post op total R hip precautions, WBAT RLE, fall risk, bed alarm, IV UE, and impaired hearing. High complexity level 07836 via chart review, testing, and eval. Recommend SNF to enable safe return home at prior level of independence. Thank you for this referral. Noe Kirkpatrick OTR/l
--- NOTE | 2018-11-20 11:56 | NUR ---
PATIENT REQUESTING PAIN MEDICATION FOR RIGHT HIP PAIN RATED 8/10 ON 0/10 SCALE. NORCO ADMINISTERED PRESCRIBED. WILL MONITOR FOR EFFECTIVENESS.
[2018-11-20 12:00] VITALS: BP 100/49
--- NOTE | 2018-11-20 12:10 | NUR ---
PHYSICAL THERAPY Patient seen this pm 1;1 for therapy visit and was sitting up in bedside chair upon therapist arrival. Patient voices 7/10 R hip pain and was joined by his this afternoon. Patient reviewed hip precautions and voiced his understanding prior to transfering sit to stand from low chair surface MOD A. Patient completed SPT to EOB sit with use of wh walker, Min A and needing several v/c's to improve safe step sequence. Patient also educated on use of overhead trapeze bar for bed mobility / transfer to control pain and transfered sit to supine, MIN A, with therapist support of R LE during transfer for pain control. Patient able to position himself to HOB and instructed on R LE heel slide, Quad / Glute set and ankle pump ex x 10 reps each without c/o. Patient remained in bed with abductor wedge, call light, tray table, cell phone and bed alarm for safety. Will continue per POC as tolerated, total treatment time 18 minutes. Keith Gibson, MAJOR ASSEMBLER
--- NOTE | 2018-11-20 13:14 | NUR ---
Patient updated clinicals, therapy evals and notes faxed to [facility], asked to start precert. will have to wait for auth.
--- NOTE | 2018-11-20 14:04 | NUR ---
OT NOTE Pt was seen this P.M. 1:1 for 24 minute OT session. Upon arrival pt was supine in bed. Pt identified by name and and had complaints of 9/10 R hip pain and increased fatigue due to not sleeping the previous night. Session was started with hip precaution education. Pt stated that he was educated previously however was unable to verbalize any of the precautions. Reeducated pt and provided pt with a hand out for visual recall. Pt verbalized understanding and all questions were answered. Pt transferred supine to sit EOB with modA for assist with RLE and use of overhead trapeze bar. Upon inital rise pt had complaints of feeling dizzy and nauseated. Educated pt on visual fixation technique and after aprox 15 seconds pt stated it had passed. While sitting EOB pt was educated on lower body adaptive equipment including sock aid, senior search marketing analyst, and long handled sponge for increased I in self care tasks and maintaining hip precautions. After demonstration pt then doffed B socks using the senior search marketing analyst with SBA. He then donned B socks using the sock aid with Cresencio for first sock due to assist with donning onto aid and second completed with SBA. Pt then simulated LB bathing using the long handled sponge with SBA. Due to increased fatigue and pain no other tasks were completed at this time. Pt transferred back into bed sit to supine with modA for assist with BLE while pt used overhead trapeze bar for UB. MaxA X 2 for repositioning in bed. Pt was left supine in bed with call light in hand, tray table in place, bed alarm activated, and abductor pillow in place. Continue with rec D/C plan to SNF. NOREEN Wilson/Terrell
--- NOTE | 2018-11-20 14:16 | NUR ---
Patient precert started, waiting for auth.
[2018-11-20 16:00] VITALS: BP 110/59
--- NOTE | 2018-11-20 16:10 | NUR ---
DR MUSTAFA IN TO SEE PATIENT.TO REMOVE ALICEA AND CHANGE DRESSING TOMORROW 11/21.
[2018-11-20 20:00] VITALS: BP 117/49
--- NOTE | 2018-11-20 20:06 | NUR ---
AWAKE/ALERT FOR SHIFT ASSESSMENT. PLEASANT AND COOPERATIVE WITH CARE. C/O RIGHT HIP PAIN RATED 6/10. SCDS ON, ABDUCTOR PILLOW IN PLACE, CALL LIGHT IN REACH. WILL MONITOR.
[2018-11-21] VITALS: BP 110/50
--- NOTE | 2018-11-21 04:46 | NUR ---
MEDICATED WITH PRN NORCO ORDERD FOR C/O RIGHT HIP PAIN RATED 5/10
[2018-11-21 05:59] LABS: BASO % 0.1 % (0.0-1.0); HEMATOCRIT 31.2 % (42.0-52.0); HEMOGLOBIN 9.9 g/dl (14.0-18.0); LYMPH % 14.6 % (27.0-41.0); MEAN CELL VOLUME 91.5 fl (80.0-94.0); MEAN CORPUSCULAR HGB CONC 31.7 g/dl (33.0-37.0); MONO # 1.1 10*3/uL (0.1-1.0); MONO % 8.4 % (3.0-9.0); NEUT # 10.1 10*3/uL (2.3-7.9); NEUT % 75.3 % (47.0-73.0); PLATELET COUNT AUTOMATED 223 10*3/uL (130-400); RED BLOOD COUNT 3.41 10*6/uL (4.50-5.90); RED CELL DISTRI WIDTH 14.8 % (0-14.5); WHITE BLOOD COUNT 13.5 10*3/uL (4.8-10.8)
--- NOTE | 2018-11-21 08:00 | NUR ---
SCDS in place to RLE, skin warm dry and intact underneath. BRICE hose in place to LLE, skin warm dry and intact underneath. Maru Norman OVJAYLEN Student/Ricarda Smith Instructor
[2018-11-21 08:02] VITALS: BP 128/60
--- NOTE | 2018-11-21 08:45 | NUR ---
Patient ambulating with PT at this time, complained of pain of a 10 on a 1-10 scale and nausea. Requested and medicated per order with PRN Morphine 2mg IV and PRN Zofran 4mg IV. Will continue to monitor for effectiveness of PRN medications. Maru Norman/Ricarda Smith
--- NOTE | 2018-11-21 09:00 | NUR ---
PHYSICAL THERAPY PATIENT SEEN TODAY FOR 1:1 TREATMENT IN ROOM FOR SUPINE LYING EXERCISES FOCUSED ON BLE'S WITHIN HIP PRECAUTIONS AND EDUCATED ON HIP PRECAUTIONS BY REVIEWING SHEET WITH LISTED PRECAUTIONS. TRANSFER TRAINING IN AND OUT OF BED WITH MIN/MOD OF 1 AND GAIT WITH FWW FOR 25 FT WITH MOD OF 1 WITH 50% CUES FOR TECHNIQUE WITH WBAT ON THE RLE. UPON COMPLETION OF EVALUATION PATIENT WAS PLACED UP IN RECLINER WITH CALL LIGHT IN REACH AND WITH SOME COMPLAINTS OF NAUSEA AND PAIN WHICH NURSING WILL ADDRESS WITH MEDICATION. GINI DON PT
--- NOTE | 2018-11-21 11:34 | NUR ---
Patient resting in bed with eyes closed at this time. Arouses easily. Verbalizes effectiveness of PRN Morphine, rates pain at a 2 on a 1-10 scale. Patient also verbalizes effectiveness of PRN Zofran, denies any nausea at this time. Maru Norman/Ricarda Smith
[2018-11-21 12:00] VITALS: BP 119/70
--- NOTE | 2018-11-21 12:48 | NUR ---
PATIENT VOIDED, QUANTITY SUFFICIENT SINCE REMOVAL OF ALICEA 7 HOURS AGO. SHLOMO RAMIREZ OVCT STUDENT/NITIN BARTLETT INSTRUCTOR
--- NOTE | 2018-11-21 14:52 | NUR ---
PT REQUESTED AND WAS MEDICATED WITH DULCOLAX FOR C/O CONSTIPATION. PT REQUESTED STOOL SOFTNER DAILY. DR CAPONE NOTIFIED, NEW ORDERS RECEIVED.
[2018-11-21 16:00] VITALS: BP 116/51
[2018-11-21 20:00] VITALS: BP 112/50
--- NOTE | 2018-11-21 20:37 | NUR ---
PATIENT IS RESTING IN BED WITH EASY AND REGULAR RESPERS ON ROOM AIR. ASSESSMENT IS COMPLETE WITH NO C/O OR S/S OF DISTRESS NOTED AT THIS TIME. BED IS LOW, LOCKED, ALARMED, AND CALL LIGHT IS WITHIN REACH. DRESSING TO RIGHT HIP IS DRY AND INTACT. BLOOD GLUCOSE 315. SEE SHIFT ASSESSMENT.
--- NOTE | 2018-11-21 23:48 | NUR ---
PRN NORCO GIVEN AT THIS TIME FOR PATIENT C/O RIGHT HIP PAIN RATING AN 8/10. CALL LIGHT IS WITHIN REACH, WILL MONITOR EFFECT.
[2018-11-22] VITALS: BP 122/55
[2018-11-22 07:04] LABS: BASO % 0.2 % (0.0-1.0); EOS % 0.2 % (1.0-4.0); HEMATOCRIT 32.2 % (42.0-52.0); HEMOGLOBIN 10.3 g/dl (14.0-18.0); LYMPH # 2.3 10*3/uL (1.3-4.4); LYMPH % 19.1 % (27.0-41.0); MEAN CELL VOLUME 91.2 fl (80.0-94.0); MEAN CORPUSCULAR HGB 29.2 pg (27.0-31.0); MEAN PLATELET VOLUME 11.2 fl (9.6-12.3); MONO % 8.4 % (3.0-9.0); NEUT # 8.5 10*3/uL (2.3-7.9); NEUT % 70.6 % (47.0-73.0); PLATELET COUNT AUTOMATED 226 10*3/uL (130-400); RED BLOOD COUNT 3.53 10*6/uL (4.50-5.90); RED CELL DISTRI WIDTH 14.6 % (0-14.5)
[2018-11-22 08:00] VITALS: BP 132/58
--- NOTE | 2018-11-22 09:12 | NUR ---
PT MEDICATED WITH DULCOLAX FOR C/O CONSTIPATION. HYPERACTIVE BSX4. CALL LIGHT IN REACH. WILL MONITOR
--- NOTE | 2018-11-22 11:21 | NUR ---
MEDICATED WITH MILK OF MAG PER ORDERS. WILL MONITOR
[2018-11-22 12:00] VITALS: BP 138/62
--- NOTE | 2018-11-22 14:30 | NUR ---
PT AMBULATED TO BR WITH PHYSICAL THERAPY, PASSED A LARGE AMT OF GAS. NO BM YET. WILL MONITOR
--- NOTE | 2018-11-22 15:00 | NUR ---
PHYSICAL THERAPY PATIENT SEEN IN ROOM TODAY FOR 1:1 TREATMENT WITH PRESENT. NURSING HAD JUST GOT HIM UP AND IN CHAIR SO WE WENT THROUGH EXERCISES FOR 2 SETS OF 15 FOR GLUT SETS, AP'S, QUAD SETS AND ASSISTED HIP ABDUCTION WELL LAQ'S WITH GOOD TOLERANCE. PATIENT COMPLETES STS WITH MOD OF 1 AND GAITS TO AND FROM BATHROOM WITH FWW AND MIN OF 1 WTIH CUES FOR UPRIGHT POSTURE AND STEP LENGTH. UPOM COMPLETION OF SESSION WAS RETURNED TO RECLINER WITH PRESENT AND CALL LIGHT IN HAND. GINI DON PT
--- NOTE | 2018-11-22 15:47 | NUR ---
PT REQUESTED AND WAS MEDICATED WITH NORCO FOR C/O RIGHT HIP PAIN. CALL LIGHT IN REACH. WILL MONITOR.
[2018-11-22 16:00] VITALS: BP 106/89
--- NOTE | 2018-11-22 19:30 | NUR ---
VISITING WITH DURING BEDSIDE REPORT. NO COMPLAINTS
[2018-11-22 20:00] VITALS: BP 130/66
--- NOTE | 2018-11-22 20:45 | NUR ---
RESTING IN BED WITH NO ACUTE DISTRESS NOTED. RESPIRATIONS EASY. LUNGS DIMINISHED, CLEAR. PULSE OX 99% RA. DRESSING INTACT RIGHT HIP. TOES MOVE FREELY. TEDS/SCDS IN PLACE. CALL LIGHT WITHIN REACH. NO VOICED COMPLAINTS
--- NOTE | 2018-11-22 20:50 | NUR ---
24 HR chart check completed.
--- NOTE | 2018-11-22 21:46 | NUR ---
MEDICATED WITH NORCO PER REQUEST FOR COMPLAINTS OF RIGHT HIP AND LOWER BACK PAIN RATING AN 8. CALL LIGHT WITHIN REACH. WILL MONITOR
--- NOTE | 2018-11-22 23:00 | NUR ---
MEDS EFFECTIVE. SLEEPING. RESPIRATIONS EASY. CALL LIGHT WITHIN REACH
[2018-11-23] VITALS: BP 109/57
--- NOTE | 2018-11-23 00:15 | NUR ---
CONTINUES TO SLEEP WITH NO DISTRESS NOTED. RESPIRATIONS EASY. VSS. CALL LIGHT WITHIN REACH
[2018-11-23] MEDS ORDERED: AMARYL2 MG PO (01:17)
--- NOTE | 2018-11-23 01:46 | NUR ---
MEDICATED WITH NORCO PER PRN ORDER FOR COMPLAINTS OF RIGHT HIP PAIN AND LOWER BACK PAIN RATING A 7. WILL MONITOR
--- NOTE | 2018-11-23 03:00 | NUR ---
LAKIA EFFECTIVE, SLEEPING. RESPIRATIONS EASY. CALL LIGHT WITHIN REACH
--- NOTE | 2018-11-23 06:18 | NUR ---
MEDICATED WITH NORCO PER PRN ORDER FOR COMPLAINTS OF RIGHT HIP AND LOWER BACK PAIN RATING A 5. CALL LIGHT WITHIN REACH. WILL MONITOR FOR EFFECTIVENESS
[2018-11-23 06:37] LABS: BASO % 0.2 % (0.0-1.0); EOS # 0.1 10*3/uL (0.0-0.4); EOS % 0.7 % (1.0-4.0); HEMATOCRIT 31.9 % (42.0-52.0); HEMOGLOBIN 10.4 g/dl (14.0-18.0); LYMPH % 19.5 % (27.0-41.0); MEAN CELL VOLUME 90.1 fl (80.0-94.0); MEAN CORPUSCULAR HGB 29.4 pg (27.0-31.0); MEAN CORPUSCULAR HGB CONC 32.6 g/dl (33.0-37.0); MEAN PLATELET VOLUME 10.7 fl (9.6-12.3); MONO # 0.9 10*3/uL (0.1-1.0); MONO % 8.6 % (3.0-9.0); NEUT # 7.1 10*3/uL (2.3-7.9); PLATELET COUNT AUTOMATED 237 10*3/uL (130-400); RED BLOOD COUNT 3.54 10*6/uL (4.50-5.90); RED CELL DISTRI WIDTH 14.3 % (0-14.5); WHITE BLOOD COUNT 10.3 10*3/uL (4.8-10.8)
[2018-11-23 07:01] LABS: CREATININE 0.85 mg/dL (0.70-1.30)
[2018-11-23 08:00] VITALS: BP 130/53
--- NOTE | 2018-11-23 08:02 | NUR ---
Patient received auth on Friday11/20/18 late afternoon. [facility] called and notified the nursing station stating patient had auth and it was good all weekend. Patient was not discharged so updates will need to be faxed to [facility] and insurance auth restarted. Will fax updates
--- NOTE | 2018-11-23 08:45 | NUR ---
PHYSICAL THERAPY Patient seen this am 1:1 for therapy visit and was supine in bed upon therapist arrival. Patient reports mild 3/10 R hip / low back pain and presented with foam abductor wedge secondary to R hip precautions. Patient able to identify 3 hip precautions and voices his understanding / compliance with all. Patient transfers supine to sit EOB with MOD A, use of overhead trapeze and c/o of increased Nausea. Patient needed a few minutes to collect himself prior to performing sit to stand transfer, CGA x 1. Patient amubulates 15'x 1 to bathroom with use of wh walker, CGA, then additional 45'x 1, wh walker, CGA, demonstrating very slow brian, "step to" gait pattern and increased fatigue. Patient also very cautious during all turns and reports only slight increase in R hip pain 4/10. Patient returned to bedside chair and remained with call light, cell phone and body alarm for safety. Will continue per POC as tolerated, total treatment time 14 minutes. Keith Gibson, CLERICAL AIDE
--- NOTE | 2018-11-23 08:55 | NUR ---
OT NOTE Pt was seen this A.M. 1:1 for 25 minute OT session. Upon arrival pt was supine in bed. Pt identified by name and and had complaints of 3/10 pain at rest and 4/10 with activity. Pt transferred supine to sit EOB with modA for assist with RLE and pt was able to use of overhead trapeze for UB support. Upon inital rise pt had complaints of feeling nauseated, after resting for a few minutes pt stated it had passed. While sitting EOB pt was able to verbalize his hip precautions. Pt then doffed B socks with SBA and use of mathematics instructor and then donned B socks with SBA and use of sock aid. Pt then simulated use of long handled sponge with SBA. Sit to stand completed from bed level with CGA and education for proper hand placement for increased I. Functional mobility completed into the bathroom with CGA and use of w/w with good follow through of hip precautions. There pt trasnferred on/off elevated commode with CGA for safety. Functional mobility then completed back to the recliner with CGA and use of w/w. There he was left sitting upright with call light in hand, tray table in place, and body alarm on for safety. Continue with rec D/c plan to SNF. NOREEN Wilson/Terrell
[2018-11-23] MEDS ORDERED: HYDROCODONE-AC1 EAC1 PO (11:04)
[2018-11-23] MEDS ORDERED: ASPIRIN325 M2 PO (11:04)
[2018-11-23] MEDS ORDERED: ENOXAPARIN40 MG/0.2 SC (11:04)
[2018-11-23 12:00] VITALS: BP 111/58
--- NOTE | 2018-11-23 12:58 | NUR ---
Patient is discharged to [facility], transportation scheduled for 5 PM with [facility]. [facility], nursing/pantry steward/stewardess notified. Attempted to notify but was only able to leave a voicemail.
[2018-11-23 16:00] VITALS: BP 115/57
--- NOTE | 2018-11-23 16:55 | NUR ---
[id number] REPORT GIVEN
--- NOTE | 2018-11-23 17:11 | NUR ---
IV CVATH REMOVED FOR DISCHARGE.
--- NOTE | 2018-11-23 17:24 | NUR ---
Discharge instructions reviewed with patient/family. Patient receptive and verbalizes understanding. Follow-up care arranged. Written instructions given to patient/family. [facility] HERE TO TRANSPORT PATIENT TO [facility]. DIOGO KOEHLER
--- NOTE | 2018-11-24 15:21 | NUR ---
OCCUPATIONAL THERAPY CO-SIGN I approve of the Occupational Therapy notes written above. LEONILA BUENO OTR/Terrell
--- NOTE | 2018-11-26 16:24 | NUR ---
PHYSICAL THERAPY CO-SIGN I approve of the Phyical Therapy notes written above. VINAY PIERRE
== END 2018-11-23 17:24 | disposition other institution (70) | DRG 470 ==
LOC: ED → 5E 15:11 → EDHOLD 15:11 → 5E 15:28
PROVIDERS: Emergency Medicine; Family Medicine; Hospitalist; Orthopaedic Surgery; ADMIT Internal Medicine
PROC: 0SRR01A Replacement of Right Hip Joint, Femoral Surface with Metal Synthetic Substitute, Uncemented, Open Approach (ICD-10-PCS; principal; 2018-11-19)
DX: S72.001A Fracture of unspecified part of neck of right femur, initial encounter for closed fracture (principal); D64.9 Anemia, unspecified; E11.65 Type 2 diabetes mellitus with hyperglycemia; R00.1 Bradycardia, unspecified; I10 Essential (primary) hypertension; D72.829 Elevated white blood cell count, unspecified; K21.9 Gastro-esophageal reflux disease without esophagitis; W01.0XXA Fall on same level from slipping, tripping and stumbling without subsequent striking against object, initial encounter; Y93.89 Activity, other specified; Y99.8 Other external cause status; Y92.79 Other farm location as the place of occurrence of the external cause; Z83.3 Family history of diabetes mellitus; Z82.49 Family history of ischemic heart disease and other diseases of the circulatory system; Z79.899 Other long term (current) drug therapy

== ENCOUNTER → 2018-12-09 | Outpatient (CLI) | payer OTHER ==
[~2018-12-09] MED LIST changes: +AMARYL2 MG PO; +ASPIRIN325 M2 PO; +ENOXAPARIN40 MG/0.2 SC; +HYDROCODONE-AC1 EAC1 PO; +MAG DELAY PO
== END | disposition home or self-care (01) ==
LOC: ORTHO 00:23
DX: S72.001D Fracture of unspecified part of neck of right femur, subsequent encounter for closed fracture with routine healing (principal); X58.XXXD Exposure to other specified factors, subsequent encounter

== ENCOUNTER → 2018-12-21 | Outpatient (CLI) | payer OTHER ==
[2018-12-21 11:44] LABS: ALBUMIN 2.8 gm/dl (3.1-4.5); ALKALINE PHOSPHATASE 158 U/L (45-117); BUN 14 mg/dl (7-24); CHLORIDE 102 mmol/L (98-107); CHOLESTEROL 153 mg/dL (<200); CPK 31 U/L (39-308); CREATININE 0.97 mg/dL (0.70-1.30); HDL CHOLESTEROL 59 mg/dl (40-60); LDL CHOLESTEROL 65 mg/dL (9-159); POTASSIUM 4.8 mmol/L (3.5-5.1); SGOT/AST 7 IU/L (3-35); SGPT/ALT 20 U/L (12-78); SODIUM 137 mmol/L (136-145); TOTAL PROTEIN 7.3 gm/dL (6.4-8.2); TRIGLYCERIDES 144 mg/dl (<150); VLDL CHOLESTEROL 29 mg/dL (6-40)
== END | disposition home or self-care (01) ==
LOC: LAB 10:44
PROVIDERS: Family Medicine
DX: I10 Essential (primary) hypertension (principal); E11.9 Type 2 diabetes mellitus without complications; E55.9 Vitamin D deficiency, unspecified; E78.00 Pure hypercholesterolemia, unspecified

== ENCOUNTER → 2019-01-06 | Outpatient (CLI) | payer OTHER | END | disposition home or self-care (01) | LOC: ORTHO 02:35 | DX: S72.001D Fracture of unspecified part of neck of right femur, subsequent encounter for closed fracture with routine healing (principal); Z96.641 Presence of right artificial hip joint; X58.XXXD Exposure to other specified factors, subsequent encounter ==

== ENCOUNTER → 2019-02-08 | Outpatient (CLI) | payer OTHER | END | disposition home or self-care (01) | LOC: LAB 08:03 | DX: R97.20 Elevated prostate specific antigen [PSA] (principal) ==

== ENCOUNTER → 2019-02-17 | Outpatient (CLI) | payer OTHER | LOC: ORTHO 01:29 | DX: S72.001D Fracture of unspecified part of neck of right femur, subsequent encounter for closed fracture with routine healing (principal); X58.XXXD Exposure to other specified factors, subsequent encounter; Z96.642 Presence of left artificial hip joint ==

== ENCOUNTER → 2019-03-23 | Outpatient (CLI) | payer OTHER ==
[2019-03-23 08:56] LABS: HEMATOCRIT 39.7 % (42.0-52.0); HEMOGLOBIN 12.6 g/dl (14.0-18.0); MEAN CELL VOLUME 87.1 fl (80.0-94.0); MEAN CORPUSCULAR HGB 27.6 pg (27.0-31.0); MEAN CORPUSCULAR HGB CONC 31.7 g/dl (33.0-37.0); MEAN PLATELET VOLUME 10.1 fl (9.6-12.3); RED BLOOD COUNT 4.56 10*6/uL (4.50-5.90); WHITE BLOOD COUNT 6.6 10*3/uL (4.8-10.8)
[2019-03-23 09:07] LABS: ALBUMIN 3.1 gm/dl (3.1-4.5); BUN 13 mg/dl (7-24); CHLORIDE 106 mmol/L (98-107); SODIUM 140 mmol/L (136-145)
[2019-03-23 09:10] LABS: ALKALINE PHOSPHATASE 101 U/L (45-117); CHOLESTEROL 183 mg/dL (<200); CREATININE 0.88 mg/dL (0.70-1.30); HDL CHOLESTEROL 70 mg/dl (40-60); LDL CHOLESTEROL 91 mg/dL (9-159); SGOT/AST 16 IU/L (3-35); SGPT/ALT 23 U/L (12-78); TOTAL PROTEIN 6.9 gm/dL (6.4-8.2); TRIGLYCERIDES 108 mg/dl (<150); VLDL CHOLESTEROL 22 mg/dL (6-40)
[2019-03-23 09:28] LABS: VITAMIN D, 25-HYDROXY 32.5 ng/mL (30-100)
== END | disposition home or self-care (01) ==
LOC: LAB 07:56
PROVIDERS: Nurse Practitioner Family
DX: I10 Essential (primary) hypertension (principal); E11.9 Type 2 diabetes mellitus without complications; E78.00 Pure hypercholesterolemia, unspecified; E55.9 Vitamin D deficiency, unspecified; G62.9 Polyneuropathy, unspecified

== ENCOUNTER → 2019-06-24 | Outpatient (CLI) | payer OTHER ==
[2019-06-24 08:37] LABS: MEAN CELL VOLUME 87.8 fl (80.0-94.0); MEAN CORPUSCULAR HGB 27.9 pg (27.0-31.0); MEAN CORPUSCULAR HGB CONC 31.8 g/dl (33.0-37.0); MEAN PLATELET VOLUME 10.4 fl (9.6-12.3); RED BLOOD COUNT 5.01 10*6/uL (4.50-5.90)
[2019-06-24 09:01] LABS: ALBUMIN 3.5 gm/dl (3.1-4.5); ALKALINE PHOSPHATASE 82 U/L (45-117); BUN 15 mg/dl (7-24); CHLORIDE 107 mmol/L (98-107); CHOLESTEROL 190 mg/dL (<200); CPK 74 U/L (39-308); CREATININE 1.05 mg/dL (0.70-1.30); HDL CHOLESTEROL 57 mg/dl (40-60); LDL CHOLESTEROL 105 mg/dL (9-159); POTASSIUM 4.1 mmol/L (3.5-5.1); SGOT/AST 14 IU/L (3-35); SGPT/ALT 26 U/L (12-78); SODIUM 142 mmol/L (136-145); TOTAL PROTEIN 7.4 gm/dL (6.4-8.2); TRIGLYCERIDES 139 mg/dl (<150); VLDL CHOLESTEROL 28 mg/dL (6-40)
== END | disposition home or self-care (01) ==
LOC: LAB 07:45
PROVIDERS: Family Medicine
DX: I10 Essential (primary) hypertension (principal); E11.00 Type 2 diabetes mellitus with hyperosmolarity without nonketotic hyperglycemic-hyperosmolar coma (NKHHC); E78.00 Pure hypercholesterolemia, unspecified; E55.9 Vitamin D deficiency, unspecified

== ENCOUNTER → 2019-10-06 | Outpatient (CLI) | payer OTHER ==
[2019-10-06 07:29] LABS: HEMATOCRIT 44.3 % (42.0-52.0); MEAN CELL VOLUME 88.4 fl (80.0-94.0); MEAN CORPUSCULAR HGB 28.5 pg (27.0-31.0); MEAN CORPUSCULAR HGB CONC 32.3 g/dl (33.0-37.0); MEAN PLATELET VOLUME 9.7 fl (9.6-12.3); RED BLOOD COUNT 5.01 10*6/uL (4.50-5.90); RED CELL DISTRI WIDTH 14.1 % (0-14.5); WHITE BLOOD COUNT 6.3 10*3/uL (4.8-10.8)
[2019-10-06 07:56] LABS: ALBUMIN 3.3 gm/dl (3.1-4.5); ALKALINE PHOSPHATASE 79 U/L (45-117); BUN 17 mg/dl (7-24); CHLORIDE 107 mmol/L (98-107); CHOLESTEROL 182 mg/dL (<200); HDL CHOLESTEROL 56 mg/dl (40-60); LDL CHOLESTEROL 99 mg/dL (9-159); POTASSIUM 4.5 mmol/L (3.5-5.1); SGOT/AST 13 IU/L (3-35); SGPT/ALT 26 U/L (12-78); SODIUM 140 mmol/L (136-145); TOTAL PROTEIN 7.1 gm/dL (6.4-8.2); TRIGLYCERIDES 133 mg/dl (<150); VLDL CHOLESTEROL 27 mg/dL (6-40)
[2019-10-07 10:04] LABS: PROSTATE SPECIFIC AG FREE 1.57 ng/mL; PROSTATE SPECIFIC AG, SERUM 5.3 ng/mL (0.0-4.0)
== END | disposition home or self-care (01) ==
LOC: LAB 07:11
PROVIDERS: Family Medicine
DX: N40.1 Benign prostatic hyperplasia with lower urinary tract symptoms (principal); E78.00 Pure hypercholesterolemia, unspecified; I10 Essential (primary) hypertension; E11.9 Type 2 diabetes mellitus without complications

== ENCOUNTER → 2020-01-17 | Outpatient (CLI) | payer OTHER | END | disposition home or self-care (01) | LOC: ORTHO 09:39 | PROVIDERS: ATTEND Psychiatry & Neurology Psychiatry | DX: M25.762 Osteophyte, left knee (principal); M25.862 Other specified joint disorders, left knee; M25.562 Pain in left knee ==

== ENCOUNTER 2020-04-22 12:50 | Emergency (ER) | payer OTHER ==
[~2020-04-22] VITALS: Ht 175.2 cm; Wt 74.8 kg
== END 2020-04-22 15:25 | disposition home or self-care (01) ==
LOC: ED 12:50
DX: S68.115A Complete traumatic metacarpophalangeal amputation of left ring finger, initial encounter (principal); K21.9 Gastro-esophageal reflux disease without esophagitis; E11.9 Type 2 diabetes mellitus without complications; Z79.899 Other long term (current) drug therapy; W26.8XXA Contact with other sharp object(s), not elsewhere classified, initial encounter; Y93.89 Activity, other specified; Y92.89 Other specified places as the place of occurrence of the external cause; Y99.8 Other external cause status

== ENCOUNTER 2020-06-17 16:18 | Emergency (ER) | payer MEDICARE ==
[~2020-06-17] VITALS: Ht 175.2 cm; Wt 74.8 kg
== END 2020-06-17 18:25 | disposition home or self-care (01) ==
LOC: ED 16:18
DX: S20.20XA Contusion of thorax, unspecified, initial encounter (principal); K21.9 Gastro-esophageal reflux disease without esophagitis; E11.9 Type 2 diabetes mellitus without complications; I10 Essential (primary) hypertension; Z79.899 Other long term (current) drug therapy; Z79.84 Long term (current) use of oral hypoglycemic drugs; W18.39XA Other fall on same level, initial encounter; Y93.89 Activity, other specified; Y92.098 Other place in other non-institutional residence as the place of occurrence of the external cause; Y99.8 Other external cause status

== ENCOUNTER → 2021-09-27 | Outpatient (CLI) | payer MEDICARE ==
[2021-09-27 07:50] LABS: HEMATOCRIT 38.8 % (42.0-52.0); MEAN CELL VOLUME 89.4 fl (80.0-94.0); MEAN CORPUSCULAR HGB 29.7 pg (27.0-31.0); MEAN CORPUSCULAR HGB CONC 33.2 g/dl (33.0-37.0); MEAN PLATELET VOLUME 9.9 fl (9.6-12.3); RED BLOOD COUNT 4.34 10*6/uL (4.50-5.90); RED CELL DISTRI WIDTH 14.3 % (0-14.5); WHITE BLOOD COUNT 7.6 10*3/uL (4.8-10.8)
[2021-09-27 08:27] LABS: ALKALINE PHOSPHATASE 69 U/L (45-117); BUN 15 mg/dl (7-24); CHLORIDE 106 mmol/L (98-107); CHOLESTEROL 167 mg/dL (<200); CPK 155 U/L (39-308); CREATININE 1.02 mg/dL (0.70-1.30); LDL CHOLESTEROL 94 mg/dL (9-159); POTASSIUM 4.5 mmol/L (3.5-5.1); SGOT/AST 12 IU/L (3-35); SGPT/ALT 26 U/L (12-78); SODIUM 139 mmol/L (136-145); TOTAL PROTEIN 6.4 gm/dL (6.4-8.2); TRIGLYCERIDES 107 mg/dl (<150)
[2021-09-27 08:54] LABS: VITAMIN D, 25-HYDROXY 36.7 ng/mL (30-100)
== END | disposition home or self-care (01) ==
LOC: LAB 07:32
PROVIDERS: ATTEND Family Medicine
DX: E11.9 Type 2 diabetes mellitus without complications (principal); R53.83 Other fatigue; E55.9 Vitamin D deficiency, unspecified; B35.1 Tinea unguium; I10 Essential (primary) hypertension; E78.5 Hyperlipidemia, unspecified

== ENCOUNTER → 2022-04-17 | Outpatient (CLI) | payer MEDICARE | END | disposition home or self-care (01) | LOC: RAD 09:11 | PROVIDERS: ATTEND Family Medicine | DX: M79.672 Pain in left foot (principal) ==

== ENCOUNTER → 2022-04-20 | Outpatient (CLI) | payer MEDICARE | END | disposition home or self-care (01) | LOC: US 02:55 | PROVIDERS: ATTEND Family Medicine | DX: E11.40 Type 2 diabetes mellitus with diabetic neuropathy, unspecified (principal); R20.2 Paresthesia of skin; M79.672 Pain in left foot; M79.671 Pain in right foot; L53.8 Other specified erythematous conditions ==

== ENCOUNTER → 2022-05-31 | Outpatient (CLI) | payer MEDICARE ==
[2022-05-31 10:30] LABS: ALKALINE PHOSPHATASE 72 U/L (46-116); BUN 13 mg/dl (9-23); CHLORIDE 100 mmol/L (98-107); CHOLESTEROL 186 mg/dL (<200); LDL CHOLESTEROL 104 mg/dL (9-159); POTASSIUM 4.4 mmol/L (3.4-5.1); SGPT/ALT 17 U/L (10-49); THYROID STIM HORMONE (HS) 2.855 uIU/ml (0.550-4.780); TOTAL PROTEIN 6.5 gm/dL (6.0-8.0); TRIGLYCERIDES 159 mg/dl (<150)
[2022-06-01 03:06] LABS: TOTAL PROTEIN, SERUM 6.1 g/dL (6.0-8.5)
[2022-06-03 14:07] LABS: A/G RATIO 1.3 (0.7-1.7); ALBUMIN 3.4 g/dL (2.9-4.4); ALPHA-1-GLOBULIN 0.2 g/dL (0.0-0.4); ALPHA-2-GLOBULIN 0.7 g/dL (0.4-1.0); BETA GLOBULIN 0.9 g/dL (0.7-1.3); GAMMA GLOBULIN 0.9 g/dL (0.4-1.8); GLOBULIN, TOTAL 2.7 g/dL (2.2-3.9); M-SPIKE Not Observed g/dL (Not Observed)
== END | disposition home or self-care (01) ==
LOC: LAB 09:46
PROVIDERS: ATTEND Psychiatry & Neurology Neurology
DX: E11.65 Type 2 diabetes mellitus with hyperglycemia (principal)

== ENCOUNTER → 2022-11-11 | Outpatient (CLI) | payer MEDICARE | END | disposition home or self-care (01) | LOC: RESCLI 01:27 | PROVIDERS: ATTEND Internal Medicine | DX: E11.42 Type 2 diabetes mellitus with diabetic polyneuropathy (principal); K21.9 Gastro-esophageal reflux disease without esophagitis; Z98.890 Other specified postprocedural states; Z79.899 Other long term (current) drug therapy ==

== ENCOUNTER → 2024-06-11 | Outpatient (CLI) | payer MEDICARE | END | disposition home or self-care (01) | LOC: RESCLI 01:08 | PROVIDERS: ATTEND Internal Medicine | DX: E11.9 Type 2 diabetes mellitus without complications (principal); D75.839 Thrombocytosis, unspecified; Z79.899 Other long term (current) drug therapy; Z98.890 Other specified postprocedural states ==